=== PATIENT | female | born 1950 | race Caucasian/White ===

== ENCOUNTER → 2018-09-19 | Outpatient (CLI) | payer MEDICARE, OTHER ==
[~2018-09-19] MED LIST: ACETAMINOPHEN-1 EAC1 PO; BENICAR20 MG PO; CIPROFLOXACIN500 M1 PO; COZAAR 50 MG TA50 M2 PO; KEFLEX500 MG PO; NORCO 5-325 TA1 EACH PO; PAXIL10 MG PO; PYRIDIUM200 MG PO; SPIRIVA INH; SYMBICORT160 MCG/4. INH; SYNTHROID125 MCG PO; VENTOLIN HFA 1818 GM INH
== END ==
LOC: M.RAD 10:35
DX: Z12.31 Encounter for screening mammogram for malignant neoplasm of breast (principal); N63.23 Unspecified lump in the left breast, lower outer quadrant; N63.21 Unspecified lump in the left breast, upper outer quadrant

== ENCOUNTER → 2018-09-23 | Outpatient (CLI) | payer MEDICARE, OTHER ==
[~2018-09-23] MED LIST changes: +ADVAIR HFA 230M12 GM INH; +CLONIDINE0.1 PO; +HYDROCHLOROTH12.5 M1 PO; +NORVASC5 MG PO; +SINGULAIR 10 MG10 M1 PO; +XOLAIR150 MG/1 M SUBQ
--- NOTE | 2018-09-30 13:08 | PATH ---
[address] [address] PATHOLOGY RPT PROCEDURE Name: ABDELRAHMANMC FLORES Room: [facility]#: [id number] Admission: 09/23/18 Date of : 46 Discharge: Report #: [id number] Path Case #: [id number] [facility] Accession Number: [id number] . 01 Material submitted: . PART A: LEFT BREAST MASS PART B: LEFT BREAST MASS . 01 Clinical history: . A. 1.21 x 1.0 x 1.34 cm mass, 4:00, 3 cm FN B. 3.89 x 2.87 x 3.03 cm mass, 12:30, 4 cm FN . 02 Diagnosis: A. Left breast mass, 4:00, 3 cm from nipple, image guided core biopsies: - Ductal carcinoma in situ (DCIS), nuclear grade III, comedo type, spanning 1 mm. See comment. . B. Left breast mass, 12:30, 4 cm from nipple, image guided core biopsies: - Infiltrating ductal adenocarcinoma, intermediate grade (II/III) spanning at least 9 mm, in association with DCIS, high-grade, comedo type. See comment. . (GALLITO:tamie; 09/26/2018) MBR/09/26/2018 . 02 Comment: Specimen A (4:00) consists mostly of fat with focal high-grade DCIS seen in A2. . Synoptic data for specimen B (12:30) is as follows: . Specimen type: Image guided core biopsy Tumor site: Left breast, 12:30, 4 cm from nipple Tumor quantitation: Approximately 80% of submitted tissues Histologic type: Ductal adenocarcinoma Histologic grade: II/III Tubules, nuclei and mitoses: 3, 2, 2 LVSI: Not identified Microcalcifications: Not identified Markers: Pending Block: B3 . Breast tumor profile studies are pending on B3 and will be the subject of an addendum report. Specimens A and B reviewed with Dr. Mateo Willis who agrees with the diagnosis. . Felicita (acting [facility] breast navigator) notified at approximately 1420 on 09/26/2018. [place] [address] PATHOLOGY RPT PROCEDURE Name: MC QUICK Room: [facility]#: [id number] Admission: 09/23/18 Date of : 46 Discharge: Report #: [id number] Path Case #: [id number] . (GALLITO:tamie; 09/26/2018) . 02 Addendum: . Special studies report received from [facility], [address] [place] [address], [address], [place], [address], on case [id number], labeled with their number [id number], dated 09/30/2018. . Breast/Prognostic Marker Analysis . Specimen Site: Lt Breast, Mass, Breast cancer. Specimen ID #: [id number] . ER (Estrogen Receptor) Present/Positive Percent: 70.00% Analysis: Manual Comments: Staining Intensity: Strong . OR (Progesterone Receptor) Present/Positive Percent: 5.00% Analysis: Manual Comments: Staining Intensity: Moderate to Strong. . HER2 Not Over-Expressed Score: 1+ Analysis: Manual . Ki-67 Low Proliferation Percent: 10.00% Analysis: Manual . Time to Fixation (Cold Ischemic Time): Less than 1 minute Duration of Fixation: 12 hours 13 minutes Type of Fixative: 10% Neutral Buffered Formalin . at [facility]. Harshal Martin MD Surgical Pathologist . . Methodology The HER2 Receptor protein expression is analyzed using the [place] HER2 rabbit monoclonal antibody (clone 4B5). This assay is used for diagnostic determination of the HER2 protein over-expression in paraffin embedded, [place] [address] PATHOLOGY RPT PROCEDURE Name: MC QUICK Room: [facility]#: [id number] Admission: 09/23/18 Date of : 46 Discharge: Report #: [id number] Path Case #: [id number] formalin fixed breast cancer tissue on the [place] Benchmark. The specimen is processed using a polymer detection system. The membrane staining of the tumor is determined either by manual score or image analysis. This antibody is intended for in vitro diagnostic use. The score is reported as per package insert; 0, 1+, 2+, and 3+. This test is used for clinical purposes. . A rabbit monoclonal antibody (clone SP1) that recognized the Estrogen Receptor is used to perform immunohistochemistry on routinely fixed (formalin) paraffin embedded tissue on the [place] Benchmark. The specimen is processed using a polymer detection system. The percentage of stained tumor nuclei is determined either manually or by image analysis. This test is intended for in vitro diagnostic use. This test is used for clinical purposes. . A rabbit monoclonal antibody (clone 1E2) that recognized the Progesterone Receptor is used to perform immunohistochemistry on routinely fixed (formalin) paraffin embedded tissue on the [place] Benchmark. The specimen is processed using a polymer detection system. The percentage of stained tumor nuclei is determined either manually or by image analysis. This test is intended for in vitro diagnostic use. This test is used for clinical purposes. . A rabbit monoclonal antibody (clone 30-9) that recognized Ki67 is used to perform immunohistochemistry on routinely fixed (formalin) paraffin embedded tissue on the [place] Benchmark. The specimen is processed using a polymer detection system. The percentage of stained tumor nuclei is determined either manually or by image analysis. This test is intended for in vitro diagnostic use. This test is used for clinical purposes. . Intended Use: This antibody is intended for in vitro diagnostic (IVD) use. HER2 (4B5) is a rabbit monoclonal antibody intended for the semi-quantitative detection of HER2 antigen in sections of formalin-fixed, paraffin embedded normal and neoplastic tissue. . This antibody is intended for in vitro diagnostic (IVD) use. Estrogen Receptor (ER) (SP1) is a rabbit monoclonal antibody (IgG) that is intended for the qualitative detection of estrogen receptor (ER) antigen in sections of formalin-fixed, paraffin-embedded tissue. ER is a rabbit monoclonal antibody that recognizes human estrogen receptor alpha. . This antibody is intended for in vitro diagnostic (IVD) use. Progesterone Receptor (OR) (1E2) is a rabbit monoclonal antibody (IgG) that is intended for the qualitative detection of progesterone receptor (OR) antigen in sections of formalin fixed, paraffin embedded tissue. OR is a rabbit monoclonal antibody that recognizes the A and B forms of the human progesterone [place] [address] PATHOLOGY RPT PROCEDURE Name: MC QUICK LISA Room: [facility]#: [id number] Admission: 09/23/18 Date of : 46 Discharge: Report #: [id number] Path Case #: [id number] This antibody is intended for in vitro diagnostic (IVD) use. Ki-67 (30-9) is a rabbit monoclonal antibody (IgG) directed against C-terminal portion of Ki-67 antigen. Staining for Ki-67 can be used to aid in assessing the proliferative activity of normal and neoplastic tissue. Ki-67 is a nuclear protein expressed in proliferating cells. During the cell cycle, the Ki-67 antigen is present in the G1, S, G2 and M phase but is absent in the G0 (quiescent phase). . . Disclaimer: This Test was performed by [facility] at [address], [address]. . [facility] is a business unit of [employer] a wholly-owned subsidiary of [employer]. . This assay has not been validated on decalcified tissues. Results should be interpreted with caution if this specimen was decalcified given the likelihood of false negativity on decalcified specimens. . Any image(s) that accompany this report is/are a [employer]iosk sales representative image(s) only and should not be used to render a diagnosis. . This interpretation is contingent on the specimen and the clinical information received. . For any special tests/stains performed, known positive cells or tissues are tested with each marker and examined to ensure positivity. Positive and negative internal controls, if present, react appropriately. . This analysis is an adjunct to the evaluation of the referring physician and does not represent a final diagnosis. . The immunohistochemistry tests performed at [facility]. were validated on tissue fixed in 10% neutral buffered formalin. The performance characteristics of the tests performed on tissue processed in other fixatives is not known. . HER2 testing at [facility], [employer] is performed in compliance with the 2018 updated ASCO/CAP Clinical Practice Guideline Focused Update. If the result is EQUIVOCAL (2+), it must be confirmed by an alternative assay such as FISH or Dual RAJEEV. REF: Zuleika PEREZ, TEDDY Betancourt et al: Human Epidermal Growth Factor Receptor 2 Testing in Breast Cancer: ASCO/CAP Clinical Practice Guideline Focused Update. J Clin Oncol 36:3340-1335, 2018. . HER2 and ER/OR ASCO/CAP guidelines require fixation in neutral buffered formalin for a minimum of 6 and a maximum of 72 hours[place] [address] PATHOLOGY RPT PROCEDURE Name: MC QUICK [id number] Admission: 09/23/18 Date of : 46 Discharge: Report #: [id number] Path Case #: [id number] than 6 hours may not adequately preserve cell proteins. Fixation times longer than 72 hours may cause excess cross-linking of proteins reducing the antigen available for staining. Either scenario can cause reduced staining; hence false negative results are possible and should be considered for these situations if the HER2 IHC score is less than 3+ or ER or OR is negative (no staining or <1% positive). It is recommended that specimens fixed longer than 72 hours with HER2 IHC scores less than 3+ be confirmed by HER2 FISH or Dual RAJEEV. The time from biopsy/excision to fixation in formalin (cold ischemic time) must be less than 1 hour. Time to fixation (cold ischemic time) greater than 1 hour should be interpreted with caution. HER2 testing, mainly HER2 by FISH, is particularly vulnerable since excessive cold ischemic time results in preferential loss of HER2 probe signals that may lead to false negative results. . SCORE STAINING PATTERN IN TUMOR CELLS INTERPRETATION RESULTS 0 No staining observed or incomplete, faint membrane staining in less than or equal to 10% of tumor cells. Negative 1+ Incomplete, faint membrane staining in greater than 10% of tumor cells. Negative 2+ Incomplete and/or weak/moderate circumferential membrane staining in greater than 10% of the invasive tumor cells or complete, circumferential, intense alternative assay staining in less than or equal to 10% of invasive tumor cells. Equivocal* *Must be confirmed by alternative assay (IHC/FISH/Dual RAJEEV) 3+ Intense, complete membrane staining in greater than 10% of tumor cells. Positive . A complete copy of the report is on file. . Professional and Technical services performed by [facility]. at [address] [place] [address], [place] [address]. . (AMJ 09/30/2018) AZJ/09/30/2018 Addendum Electronically Signed by tSeve Aranda MD, Pathologist . 02 Electronically signed: . Steve Aranda MD, Pathologist NPI- [id number] . 01 Gross description: . A. Received in formalin labeled "Mc Quick, left breast BX," [place] [address] PATHOLOGY RPT PROCEDURE Name: MC QUICK LISA Room: [facility]#: [id number] Admission: 09/23/18 Date of : 46 Discharge: Report #: [id number] Path Case #: [id number] additionally labeled on the requisition as "4:00 3CFN," are multiple needle cores of yellow-orr fibrofatty tissue measuring 0.6 x 0.4 x 0.1 cm in aggregate dimensions. The tissue is submitted in its entirety in cassettes A1 through A3. The cold ischemic time is 1 minute. The total formalin fixation time is 12 hours and 9 minutes. . B. Received in formalin labeled "Mc Quick, left breast BX," and additionally labeled on requisition as "1230 4CFN," are multiple needle cores of yellow-orr fibrofatty tissue measuring 1.9 x 0.7 x 0.2 cm in aggregate dimensions. The tissue is submitted in its entirety in cassettes B1 through B3. The cold ischemic time is less than 1 minute. The total formalin fixation time is 12 hours and 13 minutes. (TSD; 09/23/2018) TOB/TOB . 02 Pathologist provided ICD-10: D05.12, C50.912 . 02 CPT . 547728, 860506 Specimen Comment: A courtesy copy of this report has been sent to Specimen Comment: [phone], , . Specimen Comment: Report sent to ,DR FERNANDEZ / DR CANTU Specimen Comment: A duplicate report has been generated due to demographic updates. Performed at: [id number] [facility] [address], [place] [address] MD Oh Hawkins MD Phone: [phone] Performed at: 02 [facility] [address], [place], [place] [address] MD Steve Aranda MD Phone: [phone]
== END | disposition home or self-care (01) ==
LOC: M.ULTRA 07:58
DX: C50.912 Malignant neoplasm of unspecified site of left female breast (principal); I10 Essential (primary) hypertension; J44.9 Chronic obstructive pulmonary disease, unspecified; E03.9 Hypothyroidism, unspecified; Z90.710 Acquired absence of both cervix and uterus; Z90.49 Acquired absence of other specified parts of digestive tract; Z98.51 Tubal ligation status; Z80.42 Family history of malignant neoplasm of prostate; Z80.0 Family history of malignant neoplasm of digestive organs; Z88.0 Allergy status to penicillin; Z80.8 Family history of malignant neoplasm of other organs or systems; Z79.899 Other long term (current) drug therapy; Z98.890 Other specified postprocedural states

== ENCOUNTER → 2018-10-21 | Outpatient (CLI) | payer MEDICARE, OTHER ==
[~2018-10-21] MED LIST changes: -ADVAIR HFA 230M12 GM INH
--- NOTE | 2018-10-27 19:50 | CON ---
[address] [address] CONSULTATION Name: MC QUICK Room: [facility]#: [id number] Admission: 10/21/18 Attend Phys: Clarence Kerr MD Discharge: Date of : 46 Report #: [id number] THIS REPORT FOR: //name// CC: Clarence Grimm DATE OF CONSULTATION: 10/21/2018 [facility] REFERRING PHYSICIANS: Dr. Mc Acosta, Dr. Aleksandra Do. Dr. Rowdy Grimm. PRIMARY SITE AND HISTOPATHOLOGY: The patient has an infiltrating ductal carcinoma that is involving the 12:30 position of the left breast as well as a ductal carcinoma in situ involving the 4 o'clock position of the left breast. HISTORY OF PRESENT ILLNESS: The patient is a 68-year-old woman who noted a palpable mass at the 4 o'clock position of the left breast around 05/2018. She denied having any nipple discharge. The mass persisted, so she went on to undergo a bilateral mammogram on 09/19/2018.. That revealed a large spiculated mass in the upper side of the outer left breast at the 1 o'clock position and a smaller mass was present lateral to the nipple. The patient ended up having an ultrasound-guided core biopsy on 09/23/2018. An ultrasound on 09/19/2018 at the 12:30 position measured 4.2 cm.x 3 cm x 2.2 cm. There was additional area at the 4 o'clock position that measured 2.4 cm.x 2 cm.x 1.4 cm. The biopsy of the mass at the 12:30 position was an infiltrating ductal carcinoma. It was intermediate grade 2/3, spanning at least 0.9 cm. The mass at the 4 o'clock position, was a nuclear grade 3 comedo type mass. The breast cancer was 70% estrogen receptor positive, 5% progesterone receptor positive and HER2/bo negative, Ki-67 was 10%. She presents to discuss treatment options. PAST MEDICAL HISTORY AND PAST SURGICAL HISTORY: Includes hypertension, hiatal hernia, history of blood transfusion. She had nephritis as a child. She has hemorrhoids. She is hypothyroid. MEDICATIONS: Hydrochlorothiazide, amlodipine, clonidine, Singulair, Synthroid, Advair, paroxetine, Ventolin, Spiriva. SURGICAL PROCEDURE: She was treated for nephritis in 1953, for hepatitis in 1977. She had a tubal ligation in 1972. She had a hysterectomy in 1994, and she also had a fractured ankle in the past and was also treated [place] [address] CONSULTATION Name: MC QUICKNE [id number] Admission: 10/21/18 Attend Phys: Clarence Kerr MD Discharge: Date of : 46 Report #: [id number] OBSTETRICAL AND GYNECOLOGIC HISTORY: Menarche at age 12, menopause at age 43. She is 3, para 4. FAMILY HISTORY: Mother had a brain tumor. SOCIAL HISTORY: The patient is retired. She is . She has 1 son, 3 daughters. Cigarettes: she smoked for about 2 years, and she quit smoking in 1975. Ethanol: she has not drank any alcohol containing beverages since 1974. REVIEW OF SYSTEMS: GENERAL: She denied having any fevers or chills. SKIN: She says that she does have some items that can give her a rash sometimes. LYMPH NODES: She denied having enlarged or painful glands in the neck. ENDOCRINE: She denied any hot or cold intolerance. HEMATOLOGY/IMMUNOLOGY: She denied having any anemia or recent bleeding. MUSCULOSKELETAL: She denied having any arthritis or painful swollen joints. HEAD AND NECK: She denied having any headaches, migraines. RESPIRATORY: She does have history of asthma. CARDIOVASCULAR: She denied having palpitations. GASTROINTESTINAL: She denied having nausea. RECTAL: She denied having focal weakness. PHYSICAL EXAMINATION: With my nurse, Aaliyah Ascencio, present: VITAL SIGNS: Height 5 feet 4-1/2 inches, weight 329.8 pounds, blood pressure 171/76, pulse 77, respirations 20, oxygen saturation 92%. LYMPH NODES: She had no palpable cervical, supraclavicular or axillary lymphadenopathy. EYES: Pupils were equal, round, reactive to light and accommodation. Extraocular movements were intact. HEAD, EARS, NOSE AND THROAT: Mouth had no visible lesions. HEART: Had a regular rate and rhythm without murmur. LUNGS: were clear to auscultation. BREASTS: Right breast had no suspicious palpable masses. Left breast in the upper outer quadrant had a mass that measured about 4 cm. x 4 cm. ABDOMEN: Nontender. Spleen was not palpable. Liver was at the costal margin. EXTREMITIES: Had no clubbing, cyanosis or edema. NEUROLOGIC: Cranial nerves 2-12 were intact. Sensation was intact. She had 5/5 strength in her extremities. ASSESSMENT AND PLAN: The patient has 2 foci of breast cancer in the left breast. The patient was told that her local treatment options include breast conservation therapy versus mastectomy. The efficacy of those treatment [address] [place] [address] CONSULTATION Name: MC QUICK Room: [facility]#: [id number] Admission: 10/21/18 Attend Phys: Clarence Kerr MD Discharge: Date of : 46 Report #: [id number] options can be found in the protocol from [facility] B-06 where patients with stage 1 and 2 breast cancer were randomized between total mastectomy versus lumpectomy alone versus lumpectomy and radiation therapy. At 20-year followup, there was no significant difference in overall survival between the 3 treatment groups. The addition of radiation therapy to lumpectomy reduced the local failure rate from 39% to 14%. At this point, the patient appears to be leaning towards mastectomy because there are the 2 foci of breast cancer. So it is not clear if there would be a reasonable cosmesis after attempted breast conservation therapy, and she also would be reluctant to undergo reexcision if she had closer positive margins, but she said she will be talking to her surgeon to make a final decision. She says that she is tentatively scheduled for her operation on the . She had seen the medical oncologist, Dr. Grimm, and there appears to be a likelihood that she will get chemotherapy. So the patient was told that if she does undergo a mastectomy, then radiation therapy is given if there are high risk features, otherwise she will not receive radiation treatments. So, the patient was given a copy of the consent form, and then, she was asked to follow up with me in about 2 months so that her pathology can be reviewed at that point and make final treatment management decisions. Thank you very much for this consult. <ELECTRONICALLY SIGNED> By: Clarence Kerr MD 10/27/18 1950 1837 1607Dacherei Kerr MD /nt
== END ==
LOC: M.RTH 03:36
DX: C50.512 Malignant neoplasm of lower-outer quadrant of left female breast (principal)

== ENCOUNTER 2018-11-01 06:38 | Inpatient (IN) | payer MEDICARE, OTHER ==
[~2018-11-01] VITALS: Ht 162.6 cm; Wt 148.3 kg
--- NOTE | ~2018-11-01 | H ---
[address] [address] HISTORY AND PHYSICAL Name: MC QUICK Room: [address] M.R.#: [id number] Admission: 11/01/18 Attend Phys: Aleksandra Do DO Discharge: 11/03/18 Date of : 46 Report #: [id number] THIS REPORT FOR: //name// Please refer to the History and Physical performed in the physician's office. By: [id number] Records Staff KIRSTY /NICKY
[2018-11-01] MEDS ORDERED: ADVAIR HFA 230M12 GM INH (06:58)
[2018-11-01 07:02] LABS: HEMATOCRIT 44.8 % (37.0-47.0); HEMOGLOBIN 15.4 gm/dL (12.0-15.0); MCH 31.6 pg (26.0-34.0); MCHC 34.2 g/dL (28.0-37.0); MCV 92.4 fL (80.0-100.0); RBC 4.85 mil/uL (4.20-5.00); RDW-CV 13.4 % (10.5-14.5)
[2018-11-01 07:16] LABS: ALBUMIN 3.4 g/dL (3.4-5.0); CALCIUM 9.3 mg/dL (8.5-10.1); CREATININE 1.3 mg/dL (0.6-1.3); POTASSIUM 3.8 mmol/L (3.5-5.1); TOTAL PROTEIN 7.7 g/dL (6.4-8.2)
[2018-11-01 07:25] VITALS: BP 142/73
[2018-11-01 17:45] VITALS: BP 144/64
[2018-11-02] VITALS: BP 129/66
[2018-11-02 04:00] VITALS: BP 145/68
[2018-11-02 04:33] LABS: HEMATOCRIT 38.5 % (37.0-47.0); MCH 31.1 pg (26.0-34.0); MCHC 33.4 g/dL (28.0-37.0); MPV 10.1 fl. (7.2-11.1); RBC 4.14 mil/uL (4.20-5.00); RDW-CV 13.7 % (10.5-14.5); WBC 11.5 thou/uL (4.0-11.0)
[2018-11-02 04:50] LABS: HEMOGLOBIN 12.9 gm/dL (12.0-15.0)
[2018-11-02 08:10] VITALS: BP 138/68
--- NOTE | 2018-11-02 12:47 | OP ---
[address] [place] [address] OPERATIVE REPORT Name: [facility] QUICK Room: [address] IN M.R.#: [id number] Admission: 11/01/18 Attend Phys: Aleksandra Do DO Discharge: Date of : 46 Report #: [id number] THIS REPORT FOR: //name// CC: Aleksandra Acosta DICTATED BY: Sanjay Sheridan DO DATE OF SERVICE: 11/01/2018 PREOPERATIVE DIAGNOSIS: Left breast cancer. POSTOPERATIVE DIAGNOSIS: Left breast cancer. PRIMARY SURGEON: Aleksandra Do DO COSURGEON: Sanjay Sheridan DO, PGY-2. TUBE ROLLER: Presley Almanza, MS3. OPERATION PERFORMED: Right ultrasound and fluoroscopy guided right internal jugular chemo port placement, tunneled catheter. FLUOROSCOPY TIME: 24 seconds. Surgeon interpretation of fluoroscopy, tip of the Port-A-Cath visualized in the SVC, surgeon evaluation of ultrasound, needle and then guidewire in the internal jugular vein. ANESTHESIA TYPE: General and local. ESTIMATED BLOOD LOSS: 5 . SPECIMENS: None. IMPLANTS: Port-A-Cath. COMPLICATIONS: None. CONDITION: Stable. DISPOSITION: PACU to floor. FINDINGS: Right internal jugular chemo port placement post-ultrasound and fluoroscopy guidance with surgeon interpretation of imaging with tip of catheter [address] [place] [address] OPERATIVE REPORT Name: [facility] QUICK Room: [address] IN [facility]#: [id number] Admission: 11/01/18 Attend Phys: Aleksandra Do DO Discharge: Date of : 46 Report #: [id number] at the atriocaval junction. INDICATIONS: The patient is a pleasant 68-year-old female who presented to the office with left breast cancer. The patient was subsequently recommended to undergo bilateral simple mastectomy, left superficial sentinel lymph node dissection, right IJ ultrasound and fluoro-guided chemo port placement with surgeon interpretation of images. The patient agreed with the recommendations and to proceed with surgery. Full discussion of procedure, alternatives, risks and possible complications discussed, to include but not limited to bleeding, infection, postoperative pain, scarring, pneumothorax, hemothorax, hematoma and anesthesia risks. The patient voiced understanding of these risks and agreed to proceed with surgery. TECHNIQUE: The patient remained intubated, status post bilateral mastectomy. Drapes were taken down. The patient remained in the supine position. Arms on arm boards were placed at the patient's side, remained to have bilateral lower extremity SCDs to calves, grounding pad to right lateral thigh. The patient was then prepped and draped using standard sterile fashion. Timeout was performed prior to onset of procedure, began by evaluating the right internal jugular vein using ultrasound. Once this was performed, 5 mL of 0.5% Marcaine were used for local anesthetic and internal jugular vein was accessed with 2 passes of the needle. Once the needle was placed, after this a guidewire was placed through the needle. C-arm was brought onto the field, verified wire was in the internal jugular and resting at the atriocaval junction. Ultrasound was also used to evaluate the wire as it coursed through the internal jugular vein. Once this was performed, the needle was removed and chemo port pocket was made just inferior to the clavicle on the right, dissecting down through subcutaneous tissue down to the level of the pectoralis fascia. A 3 cm horizontal incision was made at the skin for this pocket to be created. Once this was performed, an 11 blade scalpel was used to make incision at the wire for a dilator and catheter placement. Dilator was passed over the wire into the jugular vein. Wire and dilator were removed. Sheath remained. Then, previously flushed Port-A-Cath catheter was brought into the field, placed through the sheath into the internal jugular. Once this was performed, C-arm was brought back on to the field and again the catheter was noted to be at the atriocaval junction. Sheath removed, split in the middle and removed as the catheter was held in place. Once this was performed, a tunneler was brought onto the field and from the neck to the previously made chest wall pocket and was tunneled underneath the skin over the clavicle. A catheter was placed on to the tunnel and brought through previously made tunnel to the pocket. Once this was performed, chemo port was brought onto the field. It was sewn in place using 2-0 Prolenes on both left and right sides. A catheter was threaded onto the chemo port and the clear cap was used to lock this in place. A catheter easily flushed with Harris needle, normal saline as well as aspirated. It was then heparinized locked. Once this was performed using a layered closure, subcutaneous and deep dermal layers were [address] [address] OPERATIVE REPORT Name: [facility] QUICK Room: [address] M.R.#: [id number] Admission: 11/01/18 Attend Phys: Aleksandra Do DO Discharge: Date of : 46 Report #: [id number] closed using 3-0 Vicryl and skin using running 4-0 Monocryl. Neck incision was closed using a simple interrupted 4-0 Monocryl. Skin was cleansed using wet and dry lap and Dermabond skin glue was used over the skin. C-arm was again brought in the field one last time, verified that the catheter remained at the atriocaval junction and there were no kinks in the catheter. The patient was extubated in the OR, transferred to the PACU in stable condition after a brief recovery from anesthesia. We will plan to transfer to the floor for continued observation overnight. <ELECTRONICALLY SIGNED> By: Aleksandra Do DO 11/02/18 1247 1559 1852Cadriana Do DO /nt
--- NOTE | 2018-11-02 12:48 | OP ---
[address] [address] OPERATIVE REPORT Name: MC QUICK Room: [address] IN M.R.#: [id number] Admission: 11/01/18 Attend Phys: Aleksandra Do DO Discharge: Date of : 46 Report #: [id number] THIS REPORT FOR: //name// CC: Aleksandra Acosta DATE OF SERVICE: 11/01/2018 PREOPERATIVE DIAGNOSIS: Left breast cancer. POSTOPERATIVE DIAGNOSIS: Left breast cancer. SURGEON: Aleksandra Do DO. FIELD SERVICES MANAGER: Tejas Sheridan, PGY-2. PROCEDURE PERFORMED: Bilateral simple mastectomy, left superficial sentinel lymph node dissection. See further dictation for the chemo port placement. ANESTHESIA: General endotracheal and local. ESTIMATED BLOOD LOSS: 50. DRAINS: Bilateral 15-Gambian CHELA drain. SPECIMENS REMOVED: Bilateral breasts and left superficial sentinel lymph node. COMPLICATIONS: None. CONDITION: Stable. DISPOSITION: PACU to the floor. HISTORY OF PRESENT ILLNESS: The patient is a 68-year-old female who presented to my office after a change in her mammogram. She underwent a left breast biopsy, which was positive for invasive cancer. She was seen by Oncology and Radiation Oncology and then decided to move forward with bilateral mastectomy and sentinel lymph node dissection. Oncology did indicate that she would need chemotherapy, so recommended a chemo port placement as well at the time of surgery. Risks discussed included bleeding, infection, pain, scar formation, need for further surgery, chronic pain, numbness or swelling and risks of general anesthesia. The patient understood these risks and elected to proceed. DESCRIPTION OF PROCEDURE: The patient initially presented to preop and was then taken to Radiology where she underwent a left breast nuclear medicine injection. She then returned to [facility] where she underwent informed consent[place] [address] OPERATIVE REPORT Name: MC QUICK Room: [address] IN [facility].#: [id number] Admission: 11/01/18 Attend Phys: Aleksandra Do DO Discharge: Date of : 46 Report #: [id number] taken to the operating room where she was laid supine on the operating room table. SCDs were placed on bilateral lower extremities. Clindamycin was given in the perioperative period. General endotracheal anesthesia was induced by Anesthesia without difficulty. Bilateral breasts, neck and chest were prepped and draped in the standard sterile fashion. Timeout was performed to verify patient and procedure. I began by marking out the bilateral clavicles, the sternum, inframammary fold and latissimus dorsi. Bilateral elliptical incisions were then marked out around the breast. We started on the right side, which was the noncancerous side. 20 mL of 0.5% Marcaine were injected in the area of the planned incision. Incision was made with a 10 blade. Cautery was used for hemostasis. We then began forming flaps. We initially moved superiorly to the clavicle, then medially to the sternum, inferiorly to the inframammary fold and laterally to the latissimus dorsi. All dissection was undertaken utilizing the cautery. The breast tissue was then gently elevated using an Allis clamp and was dissected free from the underlying pectoralis fascia utilizing the cautery. Specimen was then marked in the superior and lateral direction, was handed off for permanent pathology. Hemostasis was assured within the wound. The wound was then lightly packed with moistened lap pads and covered with a clean blue towel while we turned our attention to the left breast. A 5 mL of Lymphazurin blue dye were injected in the periareolar area. 20 mL of 0.5% Marcaine were injected along the planned incision. Incision was made with a 10 blade. Cautery was used for hemostasis. Mastectomy proceeded in the same fashion as on the right side. Flaps were created to the clavicle, the sternum, the inframammary fold and the latissimus dorsi. Tissues were dissected free from the underlying pectoralis fascia utilizing cautery. Specimen was marked in the superior and lateral direction. Before it was handed off for permanent pathology, the nipple was interrogated with the Neoprobe, and we had highest uptake of approximately 5800 at the nipple. Specimen was then handed off for permanent pathology. Her axilla was then interrogated. There was actually a very bright blue lymphatic which was leading down into the axilla. In this area, there was a very high uptake on the Neoprobe. It was very minimal dissection, a large blue node was then identified, our highest uptake here was 1185. The lymph node was then dissected free and was handed off as left superficial sentinel lymph node. Hemostasis was then also assured on the left side. Both wounds were copiously irrigated until clear. Surgiflo was introduced into both wounds. Two 15-Gambian bilateral CHELA drains were introduced on each side through the inferior pocket. These were sutured into place using 2-0 nylon. Both wounds were then closed in a layered fashion using deep and superficial stitches of 3-0 Vicryl in inverted interrupted fashion. Skin wounds were closed with running 4-0 Monocryl. A total of 60 mL of 0.5% Marcaine were injected in the wounds. Wounds were then cleansed and covered with skin glue. Drains were covered by 4 x 4 and a Tegaderm. Our incisions were then gently covered with a clean blue towel and the patient was reprepped and redraped for [address] [address] OPERATIVE REPORT Name: MC QUICK Room: [address] IN M.R.#: [id number] Admission: 11/01/18 Attend Phys: Aleksandra Do DO Discharge: Date of : 46 Report #: [id number] insertion of the chemo port, please see our dictation for the remainder of the procedure. <ELECTRONICALLY SIGNED> By: Aleksandra Do DO 11/02/18 1248 1515 [id number] Do DO /nt
[2018-11-02 15:50] VITALS: BP 128/47
[2018-11-02 20:00] VITALS: BP 128/64
[2018-11-03] VITALS: BP 151/69
[2018-11-03 04:00] VITALS: BP 141/68
[2018-11-03 08:00] VITALS: BP 133/50
[2018-11-03 13:27] VITALS: BP 133/50
--- NOTE | 2018-11-03 14:14 | OP ---
[address] [address] OPERATIVE REPORT Name: MC QUICK Room: [address] IN M.R.#: [id number] Admission: 11/01/18 Attend Phys: Aleksandra Do DO Discharge: Date of : 46 Report #: [id number] THIS REPORT FOR: //name// CC: Aleksandra Acosta DICTATED BY: Sanjay Sheridan DO DATE OF SERVICE: 11/02/2018 PREPROCEDURE DIAGNOSES: Left breast cancer, status post bilateral mastectomy, left sentinel lymph node dissection and right internal jugular chemo port placement, now with right breast postop hematoma. POSTOPERATIVE FINDINGS: Left breast cancer, status post bilateral mastectomy, left sentinel lymph node dissection and right internal jugular chemo port placement, now with right breast postop hematoma. PRIMARY SURGEON: Aleksandra Do DO. LAYBOY OPERATOR: Sanjay Sheridan DO, PGY2. OPERATION PERFORMED: Incision, drainage and evacuation of right breast hematoma. ANESTHESIA: General and local. ESTIMATED BLOOD LOSS: 3 mL. SPECIMEN REMOVED: 100 mL right breast hematoma. COMPLICATIONS: None. INDICATIONS FOR PROCEDURE: The patient is a pleasant 68-year-old female, postop day #1 status post bilateral mastectomy, left superficial sentinel lymph node dissection, right IJ ultrasound and fluoroscopy-guided chemo port placement and surgeon interpretation of images. The patient did well postoperatively overnight. Nursing called with concerns for bruising and swelling of the right chest and breast superior to the mastectomy flap and inferior to the chemo port flap. Pressure and ice was applied. The patient was rewrapped with Demarcus bandages x 2. Hemoglobin was checked in the morning and was confirmed to be stable. Drains continued to function and hematoma was still present. The decision was made to take the patient back to the operating room for evacuation of hematoma and the patient agreed. Fully informed written consent was obtained. Full discussion of procedure, alternatives, risks and possible complications were discussed to include but not limited to bleeding, infection, [place] [address] OPERATIVE REPORT Name: MC QUICK Room: [address] IN M.R.#: [id number] Admission: 11/01/18 Attend Phys: Aleksandra Do DO Discharge: Date of : 46 Report #: [id number] postoperative pain, recurrence of hematoma, need for further drainage. The patient again voiced understanding and agreed to proceed to the operating room. OPERATIVE TECHNIQUE: The patient was again seen and examined in preoperative holding. Fully informed written consent was obtained full discussion of procedure, alternatives, risks, possible complications. A 900 mg of clindamycin was given for preoperative antibiotics. The patient was subsequently transported to the operating suite, placed on the operating table in supine position. At this time, Anesthesia induced general anesthesia via LMA and this was successful. SCDs were placed to the bilateral lower extremity calves. Arms were placed in arm boards and all the patient's extremities and joints were padded and protected. The patient was prepped and draped using standard sterile fashion. Timeout was performed prior to onset of procedure. I began by making a 3 cm incision over the upper outer chest near axilla superior to the mastectomy incision. This was previously infiltrated with 10 mL of 0.5% Marcaine. After incision was made, dissection was carried down to the subcutaneous tissue until the hematoma was encountered. A finger was introduced and hematoma was aspirated manually using suction and finger sweeps. Approximately 100 mL of hematoma was evacuated. The patient had two CHELA drains placed during mastectomy on both sides. There was noted to be a drain that just beneath our incision in the area of the clot that was not functioning. This was inspected and replaced into position. After complete evacuation of hematoma, the area was copiously irrigated with normal saline. This was suctioned out. Incision was closed in a layered fashion using interrupted 3-0 Vicryl to close subcutaneous and deep dermal layers and running 4-0 Monocryl was used to close the skin. Skin was cleansed using wet and dry lap. Dermabond skin glue was applied for sterile dressing. The patient was extubated in the operating room, mastectomy and chest wall were rewrapped using 4 x 4s, ABDs, and Demarcus wraps x 2. The patient was transported to the PACU in stable condition after brief for recovery from anesthesia with plan to return to the floor for ongoing care and observation of hematoma and normal postoperative care. <ELECTRONICALLY SIGNED> By: Aleksandra Do DO 11/03/18 1414 1355 [id number] Do DO /nt
[2018-11-03 15:21] VITALS: BP 133/50
--- NOTE | 2018-11-07 13:08 | PATH ---
[address] [address] PATHOLOGY RPT PROCEDURE Name: MC QUICK LISA Room: [address] IN .R.#: [id number] Admission: 11/01/18 Date of : 46 Discharge: 11/03/18 Report #: [id number] Path Case #: [id number] [facility] Accession Number: [id number] . 01 Material submitted: . PART A: RIGHT BREAST SHORT SUPERIOR LONG LATERAL PART B: LEFT BREAST SHORT SUPERIOR LONG LATERAL PART C: LEFT SENTINEL LYMPH NODE . 01 Clinical history: . Ductal carcinoma . 02 Diagnosis: A. Breast, "right breast short superior long lateral": - Mild fibrocystic changes. - All surgical resection margins are free without any evidence of atypia or malignancy. . B. Breast, "left breast short superior long lateral", mastectomy: - Infiltrating ductal carcinoma intermediate grade II measuring grossly 5.2 cm in greatest dimension extending to 0.5 cm from the anterior inferior margin, which is the closest margin completely excised. . - Ductal carcinoma in situ high grade with comedo type necrosis spanning 3.3 cm invoving 11 of 24 sections 0.2 cm from anterior superior margin which is the closest margin completely excised. - Immunoperoxidase stain block Ae1/Ae3 B9 and B10 positive in tumor. . C. Lymph node, "left sentinel lymph node": - Metastatic ductal carcinoma. The largest focus measures 0.5 cm with extracapsular extension. - Immunoperoxidase stain Ae1/Ae3 is positive . (SHA:tamie; 11/04/2018) MBR/11/07/2018 . 02 Comment: Business Development Recruiter sections including margins status block B9 and B10 and lymphnode was also reviewed by Dr. Brad Proctor. . Surgical Pathology Cancer Case Summary INVASIVE CARCINOMA OF THE BREAST: . Procedure ___ Total mastectomy (including nipple-sparing and skin-sparing mastectomy) . [place] [address] PATHOLOGY RPT PROCEDURE Name: MC QUICK Room: [address] IN M.R.#: [id number] Admission: 11/01/18 Date of : 46 Discharge: 11/03/18 Report #: [id number] Path Case #: [id number] ___ Left . + Tumor Site: Invasive Carcinoma + ___ Other (specify): 4:00 and 12:30 . Tumor Size ___ Greatest dimension of largest invasive focus >1 mm: 5.2 cm + Additional dimensions: 2.7 x 1.5 cm . Histologic Type ___ Invasive carcinoma of no special type (ductal, not otherwise specified) . Glandular (Acinar)/Tubular Differentiation ___ Score 3 (<10% of tumor area forming glandular/tubular structures) . Nuclear Pleomorphism ___ Score 2 (cells larger than normal with open vesicular nuclei, visible nucleoli, and moderate variability in both size and shape) . Mitotic Rate ___ Score 2 (4-7 mitoses per mm2) (see Table 1) . Overall Grade ___ Grade 2 (scores of 6 or 7) . + Tumor Focality + ___ Single focus of invasive carcinoma . Ductal Carcinoma In Situ (DCIS) ___ Present + ___ Positive for extensive intraductal component . + Size (Extent) of DCIS + Estimated size (extent) of DCIS (greatest dimension using gross and microscopic evaluation) (millimeters): at least 33 mm 11 of 24 blocks . + Architectural Patterns + ___ [place] + ___ Solid . + Nuclear Grade + ___ Grade III (high) . + Necrosis + ___ Present, central (expansive "comedo" necrosis) . + Lobular Carcinoma In Situ (LCIS) + ___ [place] [address] PATHOLOGY RPT PROCEDURE Name: MC QUICK Room: [address] IN [facility].#: [id number] Admission: 11/01/18 Date of : 46 Discharge: 11/03/18 Report #: [id number] Path Case #: [id number] . Tumor Extension Skin ___ Present and uninvolved. . Nipple ___ DCIS does not involve the nipple epidermis . Skeletal Muscle ___ No skeletal muscle is present. . Margins Invasive Carcinoma Margins ___ Uninvolved by invasive carcinoma Distance from closest margin (millimeters): 5 mm Specify closest margin: Anterior inferior . DCIS Margins ___ Uninvolved by DCIS Distance from closest margin (millimeters): 2mm Specify closest margin: Anterior superior . Regional Lymph Nodes ___ Involved by tumor cells Number of Lymph Nodes with Macrometastases (>2 mm): 1 + Size of Largest Metastatic Deposit (millimeters): 5 mm . + Extranodal Extension: + ___ Present . Number of Lymph Nodes Examined: 1 Number of Toppenish Nodes Examined: 1 . Treatment Effect ___ No known presurgical therapy . + Lymphovascular Invasion + ___ Present . + Dermal Lymphovascular Invasion + ___ Present . Pathologic Stage Classification (pTNM, AJCC 8th Edition) Primary Tumor (Invasive Carcinoma) (pT) ___ pT3:Tumor >50 mm in greatest dimension . Modifier ___ (sn):[place]ppenish node(s) [place] [address] PATHOLOGY RPT PROCEDURE Name: MC QUICK Room: [address] IN [facility].#: [id number] Admission: 11/01/18 Date of : 46 Discharge: 11/03/18 Report #: [id number] Path Case #: [id number] Category (pN) ___ pN1a:Metastases in 1 to 3 axillary lymph nodes, at least 1 metastasis larger than 2.0 mm . Distant Metastasis (pM) ___ Unknown . . Marker Studies previous biopsy [id number] ER: Positive 70% ND: Positive 5% HER2: Not overexpressed score 1+. Ki67: Lobular proliferation 10%. . (SHA:tamie; 11/04/2018) . 02 Electronically signed: . Mateo Willis MD, Pathologist NPI- [id number] . 01 Gross description: . A. The specimen is received in formalin, labeled "Mc Quick, right breast, short superior, long lateral", is an oriented simple modified mastectomy of right breast weighing 2172 g and measuring 33 x 26 x 5.0 cm, with and or laying, rowe-white skin measuring 23 x 16 cm with a nipple areola complex measuring 5.5 x 4.0 cm with an everted nipple measuring 1.0 cm in diameter. The posterior surface is covered with smooth fascia and in no skeletal muscle is present. The specimen is oriented as follows: Short suture = superior and long suture = lateral, and the specimen is inked as follows: Anterior superior = blue, anterior inferior = green and deep = black. The specimen is serially section from medial to lateral to reveal a yellow lobulated fatty cut surface with orr-white fibrous tissue interspersed in the ratio 60:40. No discrete masses are identified. Business Development Recruiter tissue is submitted as follows: A1. Nipple and skin A2. Superior and inferior margins A3. Medial and lateral margins (medial margin = inked orange) A4. Deep margin A5-A6. Upper outer quadrant A7-A8. Lower outer quadrant A9-A10. Lower inner quadrant A11-A12. Upper inner quadrant The specimen was excised at: 1146 on 11/01/18, placed in formalin at: 1153 on 11/01/18, formalin exposure: Approximately 36 hours. . B. The specimen is received in formalin, labeled "Mc Quick, left breast, short superior, long lateral", is an oriented simple mastectomy specimen of left breast weighing 1736 g and measuring 28 x 30 x 6.0 cm with an overlying rowe-white skin measuring 26 x 12.5 [place] [address] PATHOLOGY RPT PROCEDURE Name: MC QUICK LISA Room: [address] IN [facility].#: [id number] Admission: 11/01/18 Date of : 46 Discharge: 11/03/18 Report #: [id number] Path Case #: [id number] nipple areola complex measuring 4.5 x 4.0 cm with an everted 1.0 cm in diameter nipple. The posterior surface is covered with smooth fascia and in no discrete skeletal muscle is identified. The specimen is oriented as follows: Short suture = superior and long suture = lateral. The specimen is inked as follows: Anterior superior = blue, anterior inferior = green and the deep = black. The specimen is serially sectioned from medial to lateral to reveal a orr-white, stellate mass with few pale rowe-yellow hemorrhagic focuses with fibrous extensions measuring 5.2 x 2.7 x 1.5 cm located in central aspect of the specimen and is greater than 2.5 cm from all the margins. The fibrous extension comes to within 0.2 cm of the anterior superior, .5 cm from the anterior inferior and a greater than 2.5 cm from the remaining margins. There is a rowe-yellow focus that is 2.2 cm deep to the mass and > 1.5 cm from the deep margin. The remaining parenchyma is yellow lobulated with orr-white fibrous tissue interspersed in the ratio 70:30. Business Development Recruiter tissue is submitted as follows: B1. Nipple and skin B2-B4. Mass B5-B8. Mass with fibrous extension (orange and red ink at alternate intersection) B9. Fibrous extension closest to anterior superior margin B10. Fibrous extension closest to anterior inferior margin B11. Rowe-yellow focus B12. Superior margin closest to mass B13. Lateral margin closest to mass B14. Inferior margin closest to mass B15. Medial margin closest to mass B16. Deep margin closest to mass B17-B18. Upper outer quadrant B19-B20. Lower outer quadrant B21-B22. Lower inner quadrant B23-B24. Upper inner quadrant Specimen excised at: 1254 on 11/01/18, placed in formalin at: 1301 on 11/01/18, formalin exposure: Approximately 34 hours and 39 minutes. . C.The specimen is received in formalin, labeled "Mc Quick, left sentinel lymph node", is an irregular fragment of yellow lobulated adipose tissue measuring 3.5 x 2.6 x 1.0 cm, within which is a rowe-pink, rubbery lymph node measuring 2.8 x 1.0 x 0.7 cm. The lymph node is serially section to reveal a hemorrhagic to light green homogeneous cut surface. The specimen is entirely submitted as follows: C1. Lymph node C2. Remaning adipose tissue (SWS; 11/02/2018) SHS/SHS . 02 Pathologist provided ICD-10: C50.912, D05.12, C77.3 . 02 [place] [address] PATHOLOGY RPT PROCEDURE Name: MC QUICK Room: [address] M.R.#: [id number] Admission: 11/01/18 Date of : 46 Discharge: 11/03/18 Report #: [id number] Path Case #: [id number] CPT . [id number], [id number], [id number], [id number] Specimen Comment: A courtesy copy of this report has been sent to Specimen Comment: [phone], . Specimen Comment: Report sent to / DR FERNANDEZ Performed at: [address] [facility] [address], [place], [place] [id number] MD Oh Hawkins MD Phone: [phone] Performed at: 02 [facility] [place] [address], [place], [place] [id number] MD Steve Aranda MD Phone: [phone]
== END 2018-11-03 15:50 | disposition home health service (06) | DRG 580 ==
LOC: M.SUR 06:38 → M.TBA 15:11 → M.ORTHSURG 17:11
PROVIDERS: ADMIT Surgery
DX: C50.912 Malignant neoplasm of unspecified site of left female breast (principal); Z68.43 Body mass index [BMI] 50.0-59.9, adult; E66.01 Morbid (severe) obesity due to excess calories

== ENCOUNTER → 2018-11-18 | Outpatient (CLI) | payer MEDICARE, OTHER ==
[~2018-11-18] MED LIST changes: +ADVAIR HFA 230M12 GM INH
--- NOTE | 2018-11-18 12:53 | NUR ---
CALL RECIEVED FROM CT REQUESTION PORT A CATH ACCESS FOR CT AND NUC MED. PORT A CATH ACCESSED WITH OUT DIFFICULTY. GOOD BRISK BLOOD RETURN AND EASY FLUSH. CT NOTIFIED AND CAME AND GOT PT. PT RETURNED TO INFUSION WITH NUC MED STAFF. PORT A CATH FLUSHED AND DEACCESSED. TOLERATED WELL. DENIES QUESTIONS OR NEEDS AT [place].
== END ==
LOC: M.CT 11-11 15:22 → M.LAB 08:28 → M.CT 09:30
DX: C50.919 Malignant neoplasm of unspecified site of unspecified female breast (principal); R91.1 Solitary pulmonary nodule; M41.84 Other forms of scoliosis, thoracic region; Z91.09 Other allergy status, other than to drugs and biological substances; Z90.13 Acquired absence of bilateral breasts and nipples

== ENCOUNTER → 2018-11-21 | Outpatient (CLI) | payer MEDICARE, OTHER ==
--- NOTE | 2018-11-21 16:17 | 2DMMODE ---
[place] [address] 2 D/M-MODE ECHOCARDIOGRAM Name: MC QUICK Room: [facility]#: [id number] Admission: 11/21/18 Attend Phys: Rowdy Grimm MD Discharge: Date of : 46 Date of Service: 11/21/18 1617 Report #: [id number] THIS REPORT FOR: //name// APPROVED REPORT Study performed: 11/21/2018 12:49:27 EXAM: Comprehensive 2D, Doppler, and color-flow Echocardiogram Patient Location: Out-Patient BSA: 2.40 HR: 69 bpm BP: 140/88 mmHg Other Information Study Quality: Fair Indications Pre-Chemo 2D Dimensions IVSd: 12.83 (7-11mm) LVOT Diam: 19.44 (18-24mm) LVDd: 51.12 mm PWd: 9.91 (7-11mm) Ascending Ao: 31.81 (22-36mm) LVDs: 34.03 (25-40mm) Aortic Root: 28.51 mm Volumes Left Atrial Volume (Systole) LA ESV Index: 19.70 mL/m2 Aortic Valve AoV Peak Arnaldo.: 1.35 m/s AO Peak Gr.: 7.28 mmHg LVOT Max P.84 mmHg AO Mean Gr.: 4.61 mmHg LVOT Mean P.81 mmHg LVOT Max V: 0.98 m/s AO V2 VTI: 27.69 cm LVOT Mean V: 0.62 m/s AZALIA (VTI): 2.32 cm2 LVOT V1 VTI: 21.68 cm Mitral Valve E/A Ratio: 0.80 MV Decel. Time: 225.84 ms MV E Max Arnaldo.: 0.59 m/s MV PHT: 65.49 ms MVA (PHT): 3.36 [place] [address] 2 D/M-MODE ECHOCARDIOGRAM Name: MC QUICK Room: [facility]#: [id number] Admission: 11/21/18 Attend Phys: Rowdy Grimm MD Discharge: Date of : 46 Date of Service: 11/21/18 1617 Report #: [id number] TDI E/Lateral E': 8.43 E/Medial E': 4.92 Medial E' Arnaldo.: 0.12 m/s Lateral E' Arnaldo.: 0.07 m/s Pulmonary Valve PV Peak Arnaldo.: 0.89 m/s PV Peak Gr.: 3.17 mmHg Tricuspid Valve RAP Estimate: 5.00 mmHg TR Peak Gr.: 26.18 mmHg RVSP: 31.18 mmHg PA Pressure: 31.18 mmHg Left Ventricle The left ventricle is normal size. There is normal LV segmental wall motion. There is normal left ventricular wall thickness. Left ventricular systolic function is normal. The left ventricular ejection fraction is within the normal range. LVEF is 60-65%. The left ventricular diastolic function is normal. Right Ventricle The right ventricle is normal size. The right ventricular systolic function is normal. Atria The left atrium size is normal. The right atrium size is normal. Aortic Valve Mild aortic valve sclerosis. No aortic regurgitation is present. There is no aortic valvular stenosis. Mitral Valve The mitral valve is normal in structure. There is no mitral valve regurgitation noted. No evidence of mitral valve stenosis. Tricuspid Valve The tricuspid valve is normal in structure. Trace tricuspid regurgitation. Pulmonic Valve The pulmonary valve is normal in structure. There is no pulmonic valvular regurgitation[place] [address] 2 D/M-MODE ECHOCARDIOGRAM Name: MC QUICKNE Room: [facility]#: [id number] Admission: 11/21/18 Attend Phys: Rowdy Grimm MD Discharge: Date of : 46 Date of Service: 11/21/18 1617 Report #: [id number] The aortic root is normal in size. IVC is normal in size and collapses >50% with inspiration. Pericardium There is no pericardial effusion. <Conclusion> The left ventricle is normal size. Left ventricular systolic function is normal. The left ventricular ejection fraction is within the normal range. LVEF is 60-65%. The left ventricular diastolic function is normal. The right ventricle is normal size. The left atrium size is normal. Mild aortic valve sclerosis. No aortic regurgitation is present. There is no aortic valvular stenosis. The mitral valve is normal in structure. The tricuspid valve is normal in structure. IVC is normal in size and collapses >50% with inspiration. There is no pericardial effusion. There is normal LV segmental wall motion. <ELECTRONICALLY SIGNED> By: Norberto Velez MD, FACC 11/21/18 1617 1617 161 Norberto Velez MD, FACC /INF
== END ==
LOC: M.CRD 12:34
DX: Z01.818 Encounter for other preprocedural examination (principal); I35.8 Other nonrheumatic aortic valve disorders; C50.919 Malignant neoplasm of unspecified site of unspecified female breast; Z91.09 Other allergy status, other than to drugs and biological substances

== ENCOUNTER → 2019-06-16 | Outpatient (CLI) | payer MEDICARE, OTHER | LOC: M.ULTRA 11:21 | DX: C50.911 Malignant neoplasm of unspecified site of right female breast (principal); R22.2 Localized swelling, mass and lump, trunk; Z17.0 Estrogen receptor positive status [ER+] ==

== ENCOUNTER → 2019-06-29 | Outpatient (CLI) | payer MEDICARE, OTHER | LOC: M.CT 12:53 | DX: K57.30 Diverticulosis of large intestine without perforation or abscess without bleeding (principal); Z90.13 Acquired absence of bilateral breasts and nipples ==

== ENCOUNTER → 2019-06-30 | Outpatient (CLI) | payer MEDICARE, OTHER ==
--- NOTE | ~2019-06-30 | ONC ---
[address] [address] RADIATION ONCOLOGY NOTE Name: MC QUICK Room: [facility]#: [id number] Admission: 06/30/19 Attend Phys: Clarence Kerr MD Discharge: Date of : 46 Report #: [id number] THIS REPORT FOR: //name// CC: Clarence Acosta DATE OF SERVICE: 06/30/2019 REFERRING PHYSICIANS: Dr. Mc Acosta, Dr. Aleksandra Do, Dr. Rowdy Grimm. PRIMARY SITE AND HISTOPATHOLOGY: The patient has an infiltrating carcinoma that involved the 12 o'clock position of the left breast as well as a ductal carcinoma in situ and she had involved lymph nodes. She underwent a left breast mastectomy and a prophylactic right breast mastectomy and on the left breast mastectomy, she had an infiltrating ductal carcinoma, which measured 5.2 cm in greatest dimension. She also has a ductal carcinoma in situ with comedo necrosis that was 3.3 cm. She also had a 1/ involved left sentinel lymph node, which measured 0.5 cm and there was extracapsular extension. She went on to receive postoperative chemotherapy. On 05/25/2019, she had her third cycle of Adriamycin and Cytoxan. The patient had 4 cycles of that and she has done well after that. SOCIAL HISTORY: She is retired. She smoked cigarettes for about 2 years, she quit smoking around 1975. REVIEW OF SYSTEMS: RESPIRATORY: Breathing is stable. She does have nonproductive cough intermittently that is chronic. MUSCULOSKELETAL: She has good range of motion in her upper extremities. PHYSICAL EXAMINATION: VITAL SIGNS: With my nurse, Aaliyah Ascencio, present, the patient weighed 322.8 pounds. She was 329.8 pounds on 10/21/2018 and on 06/30/2019, her blood pressure was 150/69, pulse 89, respirations 22, and oxygen saturation 93%. LYMPH NODES: She had no palpable cervical or supraclavicular lymphadenopathy. HEART: Had a regular rate and rhythm without murmur. LUNGS: Clear to auscultation. Left chest wall had no suspicious palpable masses. Right chest wall had no suspicious palpable masses. NECK: There is no cervical or axillary lymphadenopathy. LABORATORY DATA: From 06/15/2019, sodium was 141, potassium 4.2, BUN 16, and creatinine 0.78. White blood cell count was 9.8, hemoglobin 12.8, and platelets were 289,000. ASSESSMENT AND PLAN: 1. The patient has a left breast cancer involved [place] [address] RADIATION ONCOLOGY NOTE Name: [facility] LISA Room: [facility]#: [id number] Admission: 06/30/19 Attend Phys: Clarence Kerr MD Discharge: Date of : 46 Report #: [id number] She was offered postoperative breast cancer with 70% estrogen receptor positive, 5% progesterone receptor positive and HER2/bo negative. She was offered post-mastectomy radiation therapy. This is based on studies such as the [place] 82b study where patients after mastectomy received chemotherapy and randomized to radiation therapy versus no radiation therapy and the post-mastectomy radiation therapy reduced the local regional failure rate from 32%-9% and increase the 10-year overall survival rate from 45%-54%. So, the risks, benefits, logistics of radiation therapy were explained to the patient in detail. She gave a witnessed informed consent to proceed with radiation therapy or orders will be written to schedule her for simulation probably after her port is removed and the cyst is resected around the sternal area. 2. Hypothyroidism. She takes levothyroxine that is managed by her referring physician. 3. Hypertension. The patient takes amlodipine. Her medications right now are hydrochlorothiazide, amlodipine, clonidine, Singulair, Synthroid, Advair, Zyrtec and Spiriva. Thank you for allowing me to participate in the care of this patient. By: 1137 1211Dzach Kerr MD /dain
== END ==
LOC: M.RTH 01-06 09:00
DX: Z08 Encounter for follow-up examination after completed treatment for malignant neoplasm (principal); E03.9 Hypothyroidism, unspecified; I10 Essential (primary) hypertension; Z85.3 Personal history of malignant neoplasm of breast

== ENCOUNTER → 2019-07-06 | Outpatient (CLI) | payer MEDICARE, OTHER | LOC: M.ULTRA 13:21 | DX: R19.03 Right lower quadrant abdominal swelling, mass and lump (principal) ==

== ENCOUNTER 2019-07-18 11:12 | Inpatient (IN) | payer MEDICARE, OTHER ==
[~2019-07-18] VITALS: Ht 165.1 cm; Wt 150.5 kg
[2019-07-18 11:36] LABS: URINE BILIRUBIN NEGATIVE (Negative); URINE BLOOD NEGATIVE (Negative); URINE CLARITY CLEAR; URINE COLOR YELLOW; URINE GLUCOSE-RANDOM NEGATIVE (Negative); URINE KETONES NEGATIVE (Negative); URINE LEUKOCYTES-REFLEX NEGATIVE (Negative); URINE NITRITE-REFLEX NEGATIVE (Negative); URINE PROTEIN NEGATIVE (Negative); URINE UROBILINOGEN 0.2 E.U./dl (0.2-1.0)
[2019-07-18 11:36] LABS: ABSOLUTE EOSINOPHILS 0.3 thou/uL (0.0-0.7); ABSOLUTE LYMPHOCYTES 0.9 thou/uL (0.8-5.3); ABSOLUTE MONOCYTES 0.7 thou/uL (0.0-1.2); ABSOLUTE NEUTROPHILS 2.7 thou/uL (1.6-8.1); BASOPHILS 0.3 %; EOSINOPHILS 7.6 %; HEMATOCRIT 38.9 % (37.0-47.0); HEMOGLOBIN 13.4 gm/dL (12.0-15.0); LYMPHOCYTES 19.7 %; MCH 32.2 pg (26.0-34.0); MCHC 34.4 g/dL (28.0-37.0); MCV 93.7 fL (80.0-100.0); MONOCYTES 14.5 %; MPV 8.8 fl. (7.2-11.1); NUCLEATED RBCS 0 /100WBC; PLATELET COUNT* 161 thou/uL (150-400); POLYS 57.9 %; RBC 4.16 mil/uL (4.20-5.00); RDW-CV 18.4 % (10.5-14.5); WBC 4.6 thou/uL (4.0-11.0)
[2019-07-18 11:42] LABS: CALCIUM 8.3 mg/dL (8.5-10.1); CREATININE 0.8 mg/dL (0.6-1.3); POTASSIUM 3.4 mmol/L (3.5-5.1)
[2019-07-18 11:45] LABS: APTT 29.9 Seconds (25.0-31.3); PROTIME 10.2 Seconds (9.20-11.50)
[2019-07-18 11:52] LABS: ALBUMIN 3.1 g/dL (3.4-5.0); TOTAL BILIRUBIN 0.8 mg/dL (<0.1-1.0); TOTAL PROTEIN 6.8 g/dL (6.4-8.2)
--- NOTE | 2019-07-18 12:43 | NUR ---
CHANDAN NOTIFIED UPON PT RETURNAT [address] AND NOTIFIED THE PATIENT IS THROWING UP AND WERE UNABLE TO COMPLETE EXAMS
--- NOTE | 2019-07-18 15:31 | EKG ---
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[employer]: : 1950 Requested By: Denny Ham Order Number: [id number] MD: Filiberto Castro Measurements Intervals [place] Rate: 76 P: 38 MN: 43 QRS: 54 QRSD: 122 T: 36 QT: 436 QTc: 491 Interpretive Statements Sinus rhythm Ventricular premature complex Nonspecific intraventricular conduction delay Consider anterior infarct Compared to ECG 06/13/2017 06:15:30 Ventricular premature complex(es) now present First degree AV block no longer present Myocardial infarct finding still present Electronically Signed On 07-18-2019 15:30:52 FINISHER MACHINE by Filiberto Castro [email or web address] <ELECTRONICALLY SIGNED> By: Filiberto Castro MD, FAC 07/18/19 1530 1125 1125 Filiberto Castro MD, FAC /EPI
[2019-07-18 15:48] VITALS: BP 148/85
[2019-07-18 15:50] VITALS: BP 147/82
--- NOTE | 2019-07-18 17:42 | NUR ---
RECEIVED PT FROM ER 1550. SITUATED TO ROOM. TELE IN PLACED TRACING SINUS RHYTHM ON TELE. PT COMPLAINS OF NAUSEA AND DIZZINESS. PT NPO. PT ON IV FLUIDS. PT AOX4, UP WITH ASSIST, O2 SAT 90'S RA. PT L LIMB ALERT. PT HAS NEUROLOGY CONSULT. PT REFUSING MRI, PT STATE SHE IS CLAUSTROPHOBIC. PT FOR US CAROTID AND HEART ECHO. VSS, HOURLY ROUNDING, CALL LIGHT WITHIN REACH, WILL CONTINUE TO MONITOR.
[2019-07-18 20:34] VITALS: BP 146/71
[2019-07-19] VITALS (9 sets, daily range): BP systolic 121–146; BP diastolic 53–89
--- NOTE | 2019-07-19 05:18 | NUR ---
PT IS ABLE TO COMMUNICATE HER NEEDS TO STAFF EFFECTIVELY. CURRENT PAIN MEDICATION REGIMEN HAS BEEN ADEQUATE FOR CONTROLLING HER PAIN UP TO THIS TIME. SHE HAS BEEN WEARING HER CPAP WHILE SLEEPING SO FAR THIS SHIFT. PT HAS REPORTEDLY REFUSED MRIs D/T CLAUSTROPHOBIA. PT IS TENTATIVELY SCHEDULED TO HAVE AN ECHO AND US OF CAROTIDS LATER TODAY.
--- NOTE | 2019-07-19 11:37 | 2DMMODE ---
[place] [address] 2 D/M-MODE ECHOCARDIOGRAM Name: MC QUICK Room: [address] IN [facility]#: [id number] Admission: 07/18/19 Attend Phys: Sulaiman Simons Discharge: Date of : 46 Date of Service: 07/19/19 1137 Report #: [id number] THIS REPORT FOR: //name// APPROVED REPORT Study performed: 07/19/2019 10:27:29 EXAM: Comprehensive 2D, Doppler, and color-flow Echocardiogram Patient Location: In-Patient Room #: 218 Status: routine BSA: 2.45 HR: 60 bpm BP: 134/60 mmHg Rhythm: NSR Other Information Study Quality: Good Indications dizziness 2D Dimensions IVSd: 11.58 (7-11mm) LVOT Diam: 19.78 (18-24mm) LVDd: 45.70 mm PWd: 11.76 (7-11mm) Ascending Ao: 34.00 (22-36mm) LVDs: 30.06 (25-40mm) Aortic Root: 28.54 mm Volumes Left Atrial Volume (Systole) LA ESV Index: 22.20 mL/m2 Aortic Valve AoV Peak Arnaldo.: 1.32 m/s AO Peak Gr.: 6.97 mmHg LVOT Max P.84 mmHg AO Mean Gr.: 4.12 mmHg LVOT Mean P.07 mmHg LVOT Max V: 0.98 m/s AO V2 VTI: 31.73 cm LVOT Mean V: 0.67 m/s AZALIA (VTI): 2.42 cm2 LVOT V1 VTI: 24.99 cm Mitral Valve E/A Ratio: 1.22 MV Decel. Time: 198.91 ms MV E Max Arnaldo.: 0.81 m/[place] [address] 2 D/M-MODE ECHOCARDIOGRAM Name: MC QUICK Room: [address] IN [facility].#: [id number] Admission: 07/18/19 Attend Phys: Sulaiman Simons Discharge: Date of : 46 Date of Service: 07/19/19 1137 Report #: [id number] MV PHT: 57.68 ms MVA (PHT): 3.81 cm2 TDI E/Lateral E': 7.36 E/Medial E': 6.23 Medial E' Arnaldo.: 0.13 m/s Lateral E' Arnaldo.: 0.11 m/s Pulmonary Valve PV Peak Arnaldo.: 0.90 m/s PV Peak Gr.: 3.21 mmHg Tricuspid Valve RAP Estimate: 5.00 mmHg TR Peak Gr.: 23.35 mmHg RVSP: 28.00 mmHg PA Pressure: 28.00 mmHg Left Ventricle The left ventricle is normal size. There is normal LV segmental wall motion. Mild concentric left ventricular hypertrophy. Left ventricular systolic function is normal. The left ventricular ejection fraction is within the normal range. LVEF is 60%. The left ventricular diastolic function is normal. Right Ventricle The right ventricle is normal size. The right ventricular systolic function is normal. Atria The left atrium size is normal. The right atrium size is normal. Aortic Valve The aortic valve is normal in structure. No aortic regurgitation is present. There is no aortic valvular stenosis. Mitral Valve The mitral valve is normal in structure. Trace mitral regurgitation. No evidence of mitral valve stenosis. Tricuspid Valve The tricuspid valve is normal in structure. Trace tricuspid regurgitation. estimated pa pressure 30 mm Hg Pulmonic Valve The pulmonary valve is normal in structure. There is no pulmonic valvular [place] [address] 2 D/M-MODE ECHOCARDIOGRAM Name: MC QUICK Room: [address] IN [facility]#: [id number] Admission: 07/18/19 Attend Phys: Sulaiman Simons Discharge: Date of : 46 Date of Service: 07/19/19 1137 Report #: [id number] Great Vessels The aortic root is normal in size. IVC is normal in size and collapses >50% with inspiration. Pericardium There is no pericardial effusion. <Conclusion> Mild concentric left ventricular hypertrophy. LVEF is 60%. <ELECTRONICALLY SIGNED> By: Filiberto Castro MD, FACC 07/19/19 1137 113 113 Filiberto Castro MD, FACC /INF
[2019-07-19] MEDS ORDERED: ASA81BEC PO (12:15)
--- NOTE | 2019-07-19 13:01 | NUR ---
ASSUMED PT CARE AT 0800, A0X4, UP SBA, O2 SAT 90'S RA. TRACING SR ON TELE. PT DENIES PAIN, DENIES NAUSEA/VOMITING. PT ORTHOSTATIC BP TAKEN AND CHARTED. PT DENIES DIZZINESS THIS SHIFT. PT DIET ADVANCE TO HEART HEALTHY. TOLERATING WELL. PT FOR PT/OT EVAL. PT FOR DISCHARGE. PT HAD ECHO AND US CAROTID. VSS, AM ASSESSMENT CHARTED, MEDS GIVEN PER MAR, CALL LIGHT WITHIN REACH, WILL CONTINUE TO MONITOR.
--- NOTE | 2019-07-19 15:40 | NUR ---
DISCHARGE PLAN DISCUSS WITH THE PT. TELE, IV REMOVED. MEDICATION PACKET GIVEN. REMINDED TO FOLLOW UP WITH NEUROLOGY, OUTPATIENT MRI ADVISED. OT/PT SEEN THE PATIENT. PT REMINDED TO FOLLOW UP WITH ENT, PCP. PT COMMUNICATE UNDERSTANDING. ALL BELONGINGS PACKED AND CHECKED. LEFT THE UNIT AT 1540.
--- NOTE | 2019-07-28 13:36 | CON ---
[facility] [address] [place] [address] CONSULTATION Name: [facility] Room: [address] M.R.#: [id number] Admission: 07/18/19 Attend Phys: Jan Valerio Discharge: 07/19/19 Date of : 46 Report #: [id number] THIS REPORT FOR: //name// CC: Mc Simons DATE OF SERVICE: 07/19/2019 HISTORY OF PRESENT ILLNESS: This is a 69-year-old female patient who was seen by me to evaluate the patient for any neurological etiology for the patient's dizziness. This patient indicated that yesterday she had some dizziness, some heaviness in the ears and some nausea and vomiting. The symptoms have resolved since that time. She had these symptoms intermittently in the past for a long time. She has not had any evaluation in that regard. She does not have any dizziness and she does not know if anything made the dizziness better or worse when it happened. REVIEW OF SYSTEMS: Indicates she is using a walker here. She does not know whether she can walk without a walker or not. She is on multiple medications, but she does not think the dizziness was postural. Review of systems indicates that she follows up with an oncologist and she takes chemo. She has a history of asthma, morbid obesity, hysterectomy, tubal ligations screws in the ankles, history of panic attack and stress. She feels back to her baseline and she does not believe that she has any new eye, ENT, cardiac, respiratory, GI, , musculoskeletal, constitutional, dermatological, hematological, psychiatric, throat, allergic symptom associated with present symptomatology besides above. PAST MEDICAL HISTORY: Positive for cancer and on chemotherapy. FAMILY HISTORY: Negative for any early age stroke. SOCIAL HISTORY: She does not smoke or drink any alcohol. PHYSICAL EXAMINATION: Indicate she is alert, responsive, able to follow simple and complex command. Her speech, concentration, fund of knowledge and memory is at her baseline. Cranial nerve examination 2-12 indicates no definite abnormality. She has a symmetrical strength, sensation, reflexes and tone in all 4 extremities. Her position sense is intact. Neuromuscular examination is symmetrical. I could not look at the patient's fundus. There is no carotid bruit. There is no meningeal sign. She is morbidly obese. Her hearing and vision is adequate. She has no dysmorphic features of face. Cardiac examination is unremarkable. No marked respiratory difficulty or rhonchi was noticed in this patient. She did have a CT scan of the head and a carotid Doppler. That does not show any definite abnormality [place] [address] CONSULTATION Name: [facility] Room: [address] M.R.#: [id number] Admission: 07/18/19 Attend Phys: Jan Valerio Discharge: 07/19/19 Date of : 46 Report #: [id number] LABORATORY DATA: Her white count is 4.6. Potassium was trace low at 3.4. IMPRESSION: The most likely etiology for the patient's dizziness is ENT. Transient ischemic attacks are less likely, but cannot be fully excluded. The situation is complicated because the patient said she will not do MRI here. Subsequently, she agreed to do an open MRI, but here she will not try even after sedation. That makes it difficult to define the diagnosis. In these circumstances, I will suggest the followin. Get evaluation by PT, OT. If she is stable on her feet, it may be desirable to let her go home, but set up an MRI of the brain, MRA of the head and neck as an outpatient as soon as it can be done. 2. Alternative thing is to do a CT angiogram of the head and neck. Her GFR is okay now, but it was low, an MRI will be more safer on her. 3. I will suggest putting her on aspirin for the time being. 4. I will ask to get a lipid profile done. 5. We will check for any postural hypotension. Thank you very much for this referral, and if you have any questions, please feel free to contact me. I discussed all of it with the patient and she is agreeable with this plan. <ELECTRONICALLY SIGNED> By: Young Sam MD 07/28/19 [id number] Sam MD /nt
== END 2019-07-19 15:40 | disposition home or self-care (01) | DRG 69 ==
LOC: M.ERS 11:12 → M.TBA-ER 14:49 → M.2W 14:49
PROVIDERS: Family Medicine; ADMIT Internal Medicine
DX: G45.9 Transient cerebral ischemic attack, unspecified (principal); Z68.43 Body mass index [BMI] 50.0-59.9, adult; H81.10 Benign paroxysmal vertigo, unspecified ear; I10 Essential (primary) hypertension; J45.909 Unspecified asthma, uncomplicated; E03.9 Hypothyroidism, unspecified; F41.9 Anxiety disorder, unspecified; E66.01 Morbid (severe) obesity due to excess calories; Z90.13 Acquired absence of bilateral breasts and nipples; Z90.49 Acquired absence of other specified parts of digestive tract; Z88.0 Allergy status to penicillin; Z90.710 Acquired absence of both cervix and uterus

== ENCOUNTER → 2019-08-07 | Outpatient (CLI) | payer MEDICARE, OTHER ==
[~2019-08-07] MED LIST changes: +ASA81BEC PO
== END ==
LOC: M.RAD 13:18
DX: N91.2 Amenorrhea, unspecified (principal); C50.412 Malignant neoplasm of upper-outer quadrant of left female breast; Z17.0 Estrogen receptor positive status [ER+]; Z78.0 Asymptomatic menopausal state

== ENCOUNTER → 2019-08-22 | Outpatient (CLI) | payer MEDICARE, OTHER | LOC: M.CT 10:58 | DX: K76.0 Fatty (change of) liver, not elsewhere classified (principal); R91.1 Solitary pulmonary nodule; C50.412 Malignant neoplasm of upper-outer quadrant of left female breast; K44.9 Diaphragmatic hernia without obstruction or gangrene; J98.4 Other disorders of lung; K57.30 Diverticulosis of large intestine without perforation or abscess without bleeding; I11.9 Hypertensive heart disease without heart failure; Z17.0 Estrogen receptor positive status [ER+]; Z90.13 Acquired absence of bilateral breasts and nipples ==